=== PATIENT | female | born 1995 | race American Indian/Alaskan Native ===

== ENCOUNTER 2018-02-05 14:54 | Emergency (ER) | payer SELFPAY ==
[2018-02-05 15:43] VITALS: BP 99/62
[2018-02-05] MEDS ORDERED: NACL 0.9% 1000 ML 1,000 ML IV ONE (15:43)
[2018-02-05 16:15] LABS: Basophils % (Auto) 0.6 % (0.0-1.8); Eosinophils % (Auto) 0.4 % (0.0-4.3); Hemoglobin 12.1 gm/dl (10.1-14.3); Lymphocytes # (Auto) 1.8 K/mm3 (1.2-5.4); Lymphocytes % (Auto) 39.4 % (13.4-35.0); Mean Corpuscular HGB Conc 33 % (30-34); Mean Corpuscular Hemoglobin 27 pg (28-32); Mean Corpuscular Volume 81 fl (79-97); Monocytes # (Auto) 0.5 K/mm3 (0.0-0.8); Monocytes % (Auto) 10.1 % (0.0-7.3); Platelet Count 171 K/mm3 (140-440); Red Blood Count 4.55 M/mm3 (3.65-5.03); Red Cell Distribution Width 13.9 % (13.2-15.2)
[2018-02-05 16:25] LABS: INR 0.86 (0.87-1.13)
[2018-02-05 16:26] LABS: Partial Thromboplastin Time 26.7 Sec. (24.2-36.6)
[2018-02-05 16:40] LABS: Alanine Aminotransferase 9 units/L (7-56); Albumin 4.5 g/dL (3.9-5); BUN/Creatinine Ratio 14; Blood Urea Nitrogen 10 mg/dL (7-17); Hemolysis Index 3; Lipase 19 units/L (13-60)
[2018-02-05 16:42] LABS: HCG Qualitative,Urine Negative (Negative)
== END 2018-02-05 19:00 | disposition left against medical advice (07) ==
LOC: ED 14:54
DX: R10.9 Unspecified abdominal pain (principal); M54.9 Dorsalgia, unspecified; Z53.21 Procedure and treatment not carried out due to patient leaving prior to being seen by health care provider
CPT/HCPCS: 36415; 80053; 81025; 83690; 85025; 85610; 85730; 86850; 86900; 86901